=== PATIENT | male | born 1995 | race Caucasian/White ===

== ENCOUNTER 2020-12-27 11:09 | Emergency (ER) | payer BC, SELFPAY ==
--- NOTE | ~2020-12-27 | CT_ITS ---
EXAMINATION: CT abdomen pelvis w con EXAM DATE: 12/27/2020 12:27 INDICATION: Umbilical pain, rule out appendicitis. Low abdominal pain. TECHNIQUE: Spiral CT of the abdomen and pelvis was performed following intravenous injection of 100 m L Omnipaque 350. Axial, coronal and sagittal images of the abdomen and pelvis were reviewed. The do se-length product (DLP) for this examination was 316.61 mGy-cm. The exposure was tailored according to patient size (auto mA exposure control), and iterative reconstruction (ASIR) was used as additiona l dose reduction technique. There is no prior study for comparison. FINDINGS: At the umbilicus there is soft tissue density region measuring 1.7 x 1.0 cm (axial image 88 ). There may be some skin thickening of the umbilicus. No discrete umbilical hernia identified. This soft tissue density could be proteinaceous fluid, fat necrosis, cellulitis. Please clinically correla te. The liver, spleen, adrenal glands and pancreas are unremarkable. There are cholecystectomy clips. P ortal and splenic veins are patent. Kidneys enhance symmetrically. There is no hydronephrosis. Ther e is 1.5 cm cyst. The prostate is unremarkable. The bladder is unremarkable. There is no retroperi toneal or pelvic lymphadenopathy. The appendix is normal. The stomach and small bowel are unremarkable. There is expected amount of c olonic stool. No free intraperitoneal gas. The heart is normal in size. There are no pericardial or pleural effusions. The lung bases are unremarkable. There are no osteoblastic or osteolytic les ions identified. IMPRESSION: Small umbilical soft tissue density with some skin thickening suspected. Cellulitis? No h ernia or appendicitis. Reviewed, dictated and finalized at location B. IMPRESSION: Small umbilical soft tissue density with some skin thickening suspe cted. Cellulitis? No hernia or appendicitis.
--- NOTE | 2020-12-27 11:26 | ED.ABDPAIN ---
HPI - Abdominal Pain General Chief Complaint: Abdominal Pain Stated Complaint: abd pain Time Seen by Provider: 12/27/20 11:26 Source: patient Mode of arrival: ambulatory Limitations: no limitations History of Present Illness HPI narrative: Patient is a 25-year-old male who presents for evaluation of abdominal pain. Pain is located in the center of the abdomen with radiation and a hook-like pattern to the right lower abdomen. Described as sharp in nature, worsened with movement or during the current, seem to worsen as the patient was driving over any large bump. Patient reports mild abdominal distention. He denies vomiting. Reports mild nausea. Denies fever or chills. No dysuria, hematuria or frequency. No flank pain. No history of nephrolithiasis. Last oral intake 2 hours prior to arrival at 10 AM. Patient does have a history of cholecystectomy. Related Data Allergies Allergy/AdvReac Type Severity Reaction Status Date / Time morphine Allergy Unknown Unknown Verified 12/27/20 11:29 Review of Systems Review of Systems: Narrative: CONSTITUTIONAL: Denies fever, chills, or sweats. EYES: Denies visual changes, redness, or discharge. ENT: Denies rhinorrhea, congestion, sore throat, or otalgia. CARDIOVASCULAR: Denies chest pain, palpitations, or edema. RESPIRATORY: Denies cough or dyspnea. GASTROINTESTINAL: Reports abdominal pain, nausea, no vomiting GENITOURINARY: Denies dysuria or hematuria. SKIN: Denies rash or itching. MUSCULOSKELETAL: Denies back pain, joint pain, or myalgia. NEUROLOGIC: Denies headache, numbness, or weakness. [facility] Family History Family History (Updated 02/05/18 @ 10:59 by DOCTOR UNKNOWN) Other Cerebrovascular accident Family history of allergic disorder Family history of malignant neoplasm Hypertension Social History Social History Smoking status: Never smoker Alcohol intake: current Exam Narrative: Exam Narrative: GENERAL: Awake, alert, conversant HEAD: Normocephalic, atraumatic. EYES: PERRLA and EOMI. ENT: Nares clear, no rhinorrhea or epistaxis. Mucous membranes moist. NECK: Supple. CHEST: No respiratory distress, breathing even and non labored HEART: Regular rate, sinus rhythm ABDOMEN:Non distended, tender in the umbilical region, tender in the right lower quadrant, no rebound, positive guarding EXTREMITIES: Normal range of motion. No edema. SKIN: Warm, dry, no rash. NEURO:No focal deficits. Alert and oriented x3 Course Vital Signs Vital signs: Vital Signs Temperature 36.6 C 12/27/20 11:27 Pulse Rate 89 12/27/20 11:27 Respiratory Rate 20 12/27/20 11:27 Blood Pressure 153/95 H 12/27/20 11:27 Pulse Oximetry 97 12/27/20 11:27 Temperature 36.6 C 12/27/20 11:27 Pulse Rate 68 12/27/20 14:10 Respiratory Rate 16 12/27/20 14:10 Blood Pressure 122/81 12/27/20 14:10 Pulse Oximetry 96 12/27/20 14:10 MDM - Abdominal Pain MDM Narrative Medical decision making narrative: Patient presenting for evaluation of central abdominal pain. At the time of assessment, ABCs are intact and vital signs are stable. Overlying skin is without induration, erythema or discharge. It is tender to palpation on exam. There is no mass or hernia present. No significant distention. Laboratory results are reassuring. Imaging is a bit perplexing, given there is no clinical sign of cellulitis on exam. I reviewed the CT scan with Dr. Price with general surgery who also happened to do the patient's cholecystectomy. After review of the patient's presenting symptoms, imaging results and laboratory studies, decision was made to place the patient on a short course of oral Augmentin with follow-up in his office or to his primary care physician. Patient was advised to return should his symptoms change or worsen. Differential Diagnosis Differential diagnosis: Likely abdominal pain, acute appendicitis, calculus of kidney, con
[2020-12-27 11:27] VITALS: BP 153/95; PULSE 89; RESP 20; TEMP 36.6; O2SAT 97
[2020-12-27] MEDS: SODIUM CHLORIDE 0.9% IV 1,000 ML 999 ML IV CONT (11:59)
[2020-12-27] MEDS: ONDANSETRON INJ 4 MG/2 ML VIAL IV PUSH (11:59)
[2020-12-27 12:01] LABS: Basophils Absolute Auto 0.1 K/mm3 (0.0-0.1); Basophils Percent Auto 0.6 % (0.2-1.2); Eosinophils Absolute Auto 0.1 K/mm3 (0-0.3); Eosinophils Percent Auto 1.5 % (0-4.4); Hematocrit 41.9 % (42.0-52.0); Immature Granulocyte Absolute 0.01 K/mm3 (0.00-0.031); Immature Granulocyte Percent A 0.1 % (0-0.5); Lymphocytes Absolute Auto 1.42 K/mm3 (0.9-3.2); Lymphocytes Percent Auto 17.6 % (18.3-44.2); Mean Corpuscular HGB Conc 35.8 g/dl (32-36); Mean Corpuscular Hemoglobin 31.6 pg (26-34); Mean Corpuscular Volume 88.2 fl (80-100); Mean Platelet Volume 11.5 fl (7.4-10.4); Monocytes Percent Auto 12.7 % (2.6-8.5); Neutrophils Absolute Auto 5.4 K/mm3 (1.3-6.7); Neutrophils Percent Auto 67.5 % (45.5-73.1); Platelet Count Result 250 k/mm3 (150-375); Red Blood Count 4.75 M/mm3 (4.6-6.20); Red Cell Distribution Width 11.8 % (11.5-14.5); White Blood Count 8.1 K/mm3 (4.5-10.0)
[2020-12-27 12:06] LABS: Add Urine Microscopic? YES; Appearance Urine Clear (Clear); Bilirubin Urine Negative (Negative); Blood Urine Negative (Negative); Color Urine Yellow (Yellow); Glucose Urine UA Negative (Negative); Ketones Urine Trace mg/dL (Negative); Leukocyte Esterase Ur Negative LEU/UL (Negative); Mucus Urine Few /lpf; Nitrate Urine Negative (Negative); Protein Urine Negative (Negative); RBC Urine 0-2 /hpf (0-2); Specific Grav Ur 1.014 (1.001-1.035); WBC Urine 0-3 /hpf
[2020-12-27 12:12] LABS: Alanine Aminotransferase 17 U/L (4-50); Albumin Level 4.8 g/dL (3.5-5.1); Alkaline Phosphatase 85 U/L (38-126); Anion Gap 11 mmol/L (8-16); Aspartate Amino Transferase 33 U/L (17-59); Bilirubin,Total 2.9 mg/dL (0.2-1.3); Blood Urea Nitrogen 5 mg/dL (9-20); Calcium 9.5 mg/dL (8.4-10.2); Carbon Dioxide 27 mmol/L (22-30); Chloride 103 mmol/L (98-107); Estimated CRCL calculation 119 ml/min; Estimated Glomerular Filt Rate > 60; Glucose 89 mg/dL (75-110); Lipase 42 U/L (23-300); Potassium 4.2 mmol/L (3.4-5.0); Sodium 141 mmol/L (137-145)
[2020-12-27 12:57] VITALS: BP 133/82; PULSE 68; RESP 14; O2SAT 97
[2020-12-27 14:10] VITALS: BP 122/81; PULSE 68; RESP 16; O2SAT 96
== END 2020-12-27 14:48 | disposition home or self-care (01) ==
PROVIDERS: Emergency Provider Emergency Medicine
DX: R10.33 Periumbilical pain (principal)
CPT/HCPCS: 36415; 74177; 80053; 81001; 83690; 85025; 96365; 96375; 99284; J0131; J2405; J7030; Q9967